=== PATIENT | male | born 1980 | race Caucasian/White ===

== ENCOUNTER 2019-05-13 08:30 | Outpatient (CLI) | payer MEDICAID ==
[2019-05-13 10:25] LABS: ALBUMIN 4.3 g/dL (3.2-5.5); ALBUMIN/GLOBULIN RATIO 1.4 (1.0-2.2); ALKALINE PHOSPHATASE 73 IU/L (42-121); ALT ALANINE AMINOTRANSFERASE 55 IU/L (10-60); AST ASPARTATE AMINOTRANSFERASE 73 IU/L (10-42); BUN - BLOOD UREA NITROGEN 7 mg/dL (6-20); CALCIUM 8.8 mg/dL (8.5-10.3); CARBON DIOXIDE - CO2 26 mmol/L (21-32); CHLORIDE 107 mmol/L (101-111); CHOL/HDL RATIO 3.2 (<5.0); CHOLESTEROL 219 mg/dL; CREATININE 0.8 mg/dL (0.6-1.2); GFR - MDRD 108 (>89); GLUCOSE 101 mg/dL (70-100); HDL CHOLESTEROL 68 mg/dL; LDL CHOLESTEROL,CALCULATED 91 mg/dL; LDL/HDL RATIO 1.3 (<3.6); SODIUM 140 mmol/L (135-145); TOTAL PROTEIN 7.4 g/dL (6.7-8.2); VLDL CHOLESTEROL 60 mg/dL
== END 2019-05-13 08:31 | disposition home or self-care (01) ==
LOC: LAB.S 08:30
PROVIDERS: ATTEND Internal Medicine
DX: E78.5 Hyperlipidemia, unspecified (principal)
CPT/HCPCS: 36415; 80053; 80061; 83721

== ENCOUNTER 2021-09-27 14:21 | Outpatient (CLI) | payer MEDICAID | END 2021-09-27 14:22 | disposition critical access hospital (66) | LOC: EMS 14:21 | DX: R51.9 Headache, unspecified (principal); R42 Dizziness and giddiness; X58.XXXA Exposure to other specified factors, initial encounter; Y92.009 Unspecified place in unspecified non-institutional (private) residence as the place of occurrence of the external cause | CPT/HCPCS: A0425; A0429; A0999 ==

== ENCOUNTER 2021-09-27 14:55 | Emergency (ER) | payer MEDICAID ==
[2021-09-27 15:29] LABS: HEMOGLOBIN TOTAL, VENOUS WB 16.5 g/dL (12.0-18.0); METHEMOGLOBIN VENOUS 0.1 % (0-1.5)
--- NOTE | 2021-09-27 16:01 | ED Physician Documentation ---
History of Present Illness - Stated complaint Stated Complaint: ISAACS/DIZZY - Chief complaint Chief Complaint: General - History obtained from History obtained from: Patient, EMS - Additonal information Additional information: The patient comes to the emergency department with chief complaint of possible carbon monoxide exposure at home, started about 4 hours ago. Patient states that the power went out and that he turned on the generator, which is covered by propane and states under the house. It is not clear exactly how carbon monoxide would get in the house, but the patient states that approximately 2 hours after the generator was turned on, his and daughter began to complain of headaches and dizziness. The patient got his portable carbon monoxide detector out, and it was reading high. Patient states he has had a mild headache but otherwise feels okay. He states that they were able to leave the house and call EMS. They live in [facility] and so also, the patient did not initially want to be transported, so there was some delay in arriving here. It has been about 2 hours since the patient and his family were from the house and the carbon monoxide. Medics report their initial CO level on the patient was 23, but recheck in route after 100% O2 revealed the level to come down to 13. Review of Systems Ten Systems: 10 systems reviewed and negative Constitutional: reports: Reviewed and negative Eyes: reports: Reviewed and negative Ears: reports: Reviewed and negative Nose: reports: Reviewed and negative Throat: reports: Reviewed and negative Cardiac: reports: Reviewed and negative Respiratory: reports: Reviewed and negative GI: reports: Reviewed and negative : reports: Reviewed and negative Skin: reports: Reviewed and negative Musculoskeletal: reports: Reviewed and negative Neurologic: reports: Headache. denies: LOC Psychiatric: reports: Reviewed and negative Endocrine: reports: Reviewed and negative Immunocompromised: reports: Reviewed and negative PD PAST MEDICAL HISTORY - Allergies Allergies/Adverse Reactions: Allergies Allergy/AdvReac Type Severity Reaction Status Date / Time No Known Drug Allergies Allergy Verified 09/27/21 15:03 PD ED PE NORMAL - Vitals Vital signs reviewed: Yes - General General: Alert and oriented X 3, No acute distress, Well developed/nourished - HEENT HEENT: Atraumatic, PERRL, EOMI, Moist mucous membranes - Neck Neck: Supple, no meningeal sign - Cardiac Cardiac: RRR, No murmur, Strong equal pulses - Respiratory Respiratory: No respiratory distress, Clear bilaterally - Abdomen Abdomen: Soft, Non tender, Non distended - Derm Derm: Normal color, Warm and dry, No rash - Extremities Extremities: No deformity, No edema, No calf tenderness / cord - Neuro Neuro: Alert and oriented X 3, tube buffer 2-12 intact, No motor deficit, No sensory deficit, Normal speech - Psych Psych: Normal mood, Normal affect Results - Vitals Vitals: Vital Signs - 24 hr 09/27/21 15:00 Temperature 36.6 C Heart Rate 67 Respiratory 16 Rate Blood Pressure 140/70 H O2 Saturation 100 Oxygen O2 Source Non-rebreather mask Oxygen Flow Rate 15 - Labs Labs: Laboratory Tests 09/27/21 15:19 VBG Total Hgb 16.5 VBG Oxyhemoglobin 82 L VBG Carboxyhemoglobin 11.0 H VBG Methemoglobin 0.1 PD MEDICAL DECISION MAKING - ED course Complexity details: reviewed results, re-evaluated patient, considered differential, d/w patient ED course: The patient was continued on 100% oxygen, which she had been started on in route with EMS. Carbon monoxide level here was found to be just over 11. Patient remained stable for his hour-long stay in the emergency department and I felt he was stable for discharge home. The patient states he left doors and windows open to air the house that before they left. We discussed that he needs to not use the generator again until this issue is remedied. Departure - Departure Disposition: 01 Home, Self Care Clinical Impression: Carbon monoxide exposure Condition: Stable Instructions: ED CO Poisoning Comments: Your levels of carbon monoxide have steadily come down since being picked up by the medics. You were initially 23, then 13, and now you are around 11. It is very important that you continue to keep yourself away from any source of carbon monoxide. You should not use your generator again until you have been able to fix what ever the issue is that is causing the carbon monoxide leak. You should also make sure that your house is thoroughly aired out for you stay in there with the windows and doors closed.
[2021-09-27 16:32] VITALS: BP 139/62
== END 2021-09-27 16:20 | disposition home or self-care (01) ==
LOC: EDUNIT# → ED 14:55
DX: Z77.29 Contact with and (suspected) exposure to other hazardous substances (principal)
CPT/HCPCS: 82375; 99282; 99283

== ENCOUNTER 2022-06-11 09:00 | Outpatient (CLI) | payer MEDICAID ==
--- NOTE | 2022-06-11 18:14 | XRAY Report ---
PROCEDURE: Abdomen Acute INDICATIONS: ABDOMINAL PAIN TECHNIQUE: One view chest and two views of the abdomen were acquired. COMPARISON: None FINDINGS: Surgical changes and devices: None. Chest: Lungs are clear. Heart size is normal. No pleural effusions or pneumothorax. Abdomen: Nonspecific, likely nonobstructive bowel gas pattern. Moderate fecal stool burden. Possible hepatomegaly versus Doris's lobe. Bones: No acute or suspicious radiographic findings. IMPRESSION: No acute radiographic abnormality identified in the chest or abdomen. Reviewed by: Isidro Nugent MD on 06/11/2022 5:12 PM [facility] Approved by: Isidro Nugent MD on 06/11/2022 5:12 PM [facility] Station ID: [id number]
== END 2022-06-11 23:59 | disposition home or self-care (01) ==
LOC: DI.S 09:00
PROVIDERS: ATTEND Physician Assistant Medical
DX: R10.9 Unspecified abdominal pain (principal)

== ENCOUNTER 2023-01-06 08:52 | Outpatient (CLI) | payer OTHER ==
--- NOTE | 2023-01-06 09:49 | Ultrasound Report ---
PROCEDURE: Abdomen Complete INDICATIONS: ABD DISCOMFORT TECHNIQUE: Real-time scanning was performed of the abdominal and retroperitoneal organs, with image documentatio n. COMPARISON: None. FINDINGS: Liver: The liver is increased in echogenicity. No masses are identified. Gallbladder: Unremarkable. Biliary ducts: Intrahepatic bile ducts are non-dilated. Extrahepatic bile duct caliber measures 4.9 mm. Normal is 6-7 mm or less in diameter, or 10 mm or less post-cholecystectomy. Pancreas: Visualized portions of the pancreas are sonographically normal. Spleen: Spleen is normal in size and homogeneous in echotexture. Kidneys: Kidneys are normal in size and echotexture. Right kidney measures 11.4 cm long; left kidne y measures 10.7 cm long. No hydronephrosis or nephrolithiasis. No solid masses. No complex renal cy stic lesions which require follow-up. Aorta: Visualized aorta is normal in caliber at less than 3 cm. Iliacs: Proximal common iliac arteries are normal in caliber at less than 2.5 cm. IVC: Intrahepatic inferior vena cava is patent. Miscellaneous: No free abdominal fluid. IMPRESSION: Increased hepatic echogenicity is noted, possibly related to the hepatic steatosis but other sources of hepatocellular disease cannot be excluded. Recommend clinical correlation. The remainder of the abdominal ultrasound is within normal limits. Reviewed by: Ayo Bloom MD on 01/06/2023 9:47 AM PDT Approved by: Ayo Bloom MD on 01/06/2023 9:47 AM PDT Station ID: [id number]
== END 2023-01-06 08:53 | disposition home or self-care (01) ==
LOC: DI 08:52
PROVIDERS: ATTEND Physician Assistant
DX: R10.9 Unspecified abdominal pain (principal)